=== PATIENT | male | born 1950 | race Caucasian/White ===

== ENCOUNTER 2023-08-17 11:22 | Outpatient (CLI) | payer MEDICARE, SELFPAY ==
--- NOTE | 2023-08-17 10:45 | DI.RAD_ITS ---
Exam(s) XR KNEE LT 3V AP,LAT,EFRAÍN EXAM: XR KNEE LT 3V AP,LAT,EFRAÍN CLINICAL HISTORY: pain/stiffness s/p TKA. TECHNIQUE: 2D digital imaging was performed. Three images were obtained. AP, PA tunnel and lateral views were obtained. COMPARISON: There are no priors for comparison. FINDINGS: BONES: There are stable post operative changes of a left total knee replacement present. No fracture or dislocation. There are enthesophytes at the anterior patella. There is an enthesophyte at the an terior tibial tuberosity. JOINTS: The orthopedic hardware is in good position. There is a lucency seen at the anterior bone pr osthetic interface in the distal femur the lateral view. SOFT TISSUE: Vascular calcifications are present. IMPRESSION: 1. The patient has a left total knee replacement. 2. There is a lucency seen at the anterior bone prosthetic interface in the distal femur on the later al view. Comparison should be made with prior examinations to assess for evidence of loosening. DATA REPOSITORY: RADIATION DOSE DELIVERED:
== END 2023-08-17 11:23 | disposition home or self-care (01) ==
LOC: DIORS 11:23
PROVIDERS: PCP Internal Medicine; Referring Provider Internal Medicine; Visit Provider Student in an Organized Health Care Education/Training Program
DX: M25.662 Stiffness of left knee, not elsewhere classified; Z96.652 Presence of left artificial knee joint
CPT/HCPCS: 73562; 99203

== ENCOUNTER → 2023-09-09 00:55 | Outpatient (CLI) | payer MEDICARE, SELFPAY ==
--- NOTE | 2023-09-09 06:00 | DI.NM_ITS ---
Exam(s) NM BONE SCAN 3 PHASE EXAM: NM BONE SCAN 3 PHASE CLINICAL HISTORY: PAIN, ?LOOSENING lt knee prosthesis, z96.652,T84.84xa. TECHNIQUE: Injected Dose: A9.5 mCi Tc-99m MDP COMPARISON: CR XR KNEE 4 VIEW RIGHT from 06/21/2020 CR XR KNEE LT 3V AP,LAT,EFRAÍN from 08/17/2023 FINDINGS: Perfusion: Hyperemia around the left knee. Blood Pool: Mildly increased activity around the left knee. Delayed: Increased activity seen adjacent to both the femoral and tibial components of the left knee prosthesis, suspicious for loosening. Significant activity noted in the medial femoral tibial joint space of the right knee. The findings are consistent with severe degenerative changes as seen on plain films. Increased activity also noted at the right sternoclavicular joint. Mildly increased activity in the mid thoracic spine likely secondary to degenerative changes. IMPRESSION: Abnormal increased activity around the left knee prosthesis, consistent with loosening. DATA REPOSITORY:
--- NOTE | 2023-09-09 08:29 | DI.CT_ITS ---
Exam(s) CT LOWER EXTREMITY LT WO EXAM: CT LOWER EXTREMITY LT WO CLINICAL HISTORY: PAIN, ?LOOSENING lt total knee,z96.652,T84.84xa. TECHNIQUE: Imaging Protocol: Axial computed tomography images with coronal and sagittal reformatted images were created and reviewed. CONTRAST MATERIAL: Noncontrast - COMPARISON: CR XR KNEE 4 VIEW RIGHT from 01/13/2018 CR XR KNEE 4 VIEW RIGHT from 06/21/2020 CR XR KNEE LT 3V AP,LAT,EFRAÍN from 08/17/2023 FINDINGS: Bones: Total knee prosthesis in place. Lucency seen between the anterior aspect of the femoral compo nent and femur which could indicate loosening. Slight lucency at tibial component greater medially. There is no evidence of fracture. Alignment satisfactory. Enthesophytes at patella and tibial tube rcle. No cellulitic or osteomyelitic changes are identified. No lytic or sclerotic lesions are identified. Joints: Small joint effusion. Soft Tissues: Normal. IMPRESSION: Lucency seen at the anterior aspect of the femoral component is well as adjacent to the tibial compon ent, suspicious for loosening. RADIATION DOSE DELIVERED: 350.48mGy.cm Total DLP DATA REPOSITORY: All CT scans at this facility are submitted to the National Radiology Data Registry (NRDR) Dose Index Registry (DIR) with the [employer] ([employer]). RADIATION OPTIMIZATION: All CT scans at this facility use at least one of these dose optimization te chniques: automated exposure control; mA and/or kV adjustment per patient size (includes targeted exa ms where dose is matched to clinical indication); or iterative reconstruction.
[2023-09-09 08:45] LABS: ESR 7 mm/hr (0-20)
[2023-09-09 09:23] LABS: C-Reactive Protein < 0.50 mg/dL (<or=0.5)
== END ==
PROVIDERS: PCP Internal Medicine; Visit Provider Student in an Organized Health Care Education/Training Program
DX: Z96.652 Presence of left artificial knee joint (principal); T84.84XA Pain due to internal orthopedic prosthetic devices, implants and grafts, initial encounter
CPT/HCPCS: 85652; 73700; 78315; 86140

== ENCOUNTER → 2023-09-14 14:45 | Outpatient (BNVA) | payer MEDICARE, SELFPAY | PROVIDERS: PCP Internal Medicine; Referring Provider Internal Medicine; Visit Provider Student in an Organized Health Care Education/Training Program | DX: T84.038A Mechanical loosening of other internal prosthetic joint, initial encounter (principal); Z96.652 Presence of left artificial knee joint | CPT/HCPCS: 99213 ==

== ENCOUNTER 2023-09-22 04:41 | Outpatient (CLI) | payer MEDICARE, SELFPAY ==
[2023-09-22 11:37] LABS: HCT 45.5 % (40.0-50.0); HGB 14.7 g/dL (13.5-17.5); MCH 26.5 pg (27.0-33.0); MCHC 32.3 % (32.0-36.0); MCV 82 fL (80-95); MPV 10.4 fL (8.0-11.0); Platelet Count 212 10^3/uL (130-400); RBC 5.55 10^6/uL (4.36-5.78); RDW 15.8 % (11.8-14.1); WBC 6.54 10^3/uL (4.4-10.8)
[2023-09-22 11:50] LABS: Anion Gap 6.7 mmol/L (3-11); BUN 33 mg/dL (7-18); CO2 29.3 mmol/L (21.0-32.0); CREATININE 1.3 mg/dL (0.70-1.30); Calcium 9.3 mg/dL (8.5-10.1); Chloride 106 mmol/L (98-107); Estimated GFR 58.73 (mL/min/1.73m2); Glucose 98 mg/dL (74-106); Potassium 4.3 mmol/L (3.5-5.1); Sodium 142 mmol/L (136-145)
== END 2023-09-22 04:42 | disposition home or self-care (01) ==
LOC: LBO 04:41
PROVIDERS: PCP Internal Medicine; Visit Provider Student in an Organized Health Care Education/Training Program
DX: T84.038A Mechanical loosening of other internal prosthetic joint, initial encounter (principal); Z96.659 Presence of unspecified artificial knee joint; Z01.818 Encounter for other preprocedural examination
CPT/HCPCS: 36415; 80048; 85027

== ENCOUNTER 2023-09-29 08:02 | Inpatient (IN) | payer MEDICARE, SELFPAY ==
[2023-09-29] VITALS (14 sets, daily range): BP systolic 119–168; BP diastolic 43–76; PULSE 48–65; RESP 15–24; TEMP 36.1–36.7; O2SAT 94–98; BMI 42.3
[2023-09-29] MEDS: Celecoxib 200 MG CAP 400 MG PO (08:46)
[2023-09-29] MEDS: Lactated Ringers 1,000 ML 80 ML IV ×2 (08:46→18:15)
[2023-09-29] MEDS: Gabapentin 300 MG CAP PO ×2 (08:47→20:16)
[2023-09-29] MEDS: Acetaminophen 500 MG TAB 1000 MG PO ×2 (08:47→20:15)
--- NOTE | 2023-09-29 09:49 | ANES.PREOP_ITS ---
General Info Date of Service Date Performed: 09/29/23 Height: 5 ft 9 in Weight: 130.1 kg Body Mass Index (BMI): 42.3 Surgical Procedure: Operation Date: 09/29/23 12:40 Proposed Procedure Side Surgeon p Knee Total Revision, ATTUNE Left Marcel Paulino MD Meds Allergies and Home Medications Allergies Allergy/AdvReac Type Severity Reaction Status Date / Time Sulfa (Sulfonamide Allergy Intermediate Skin Rash Verified 09/29/23 08:39 Antibiotics) bactrim Allergy Unknown Other (See Uncoded 09/29/23 08:39 Comment) Home Medication ?Medication ?Instructions ?Recorded allopurinol 300 mg tablet 300 mg PO DAILY 06/16/23 furosemide 20 mg tablet (Lasix) 20 mg PO DAILY 06/16/23 lisinopril 20 mg tablet 20 mg PO DAILY 06/16/23 metoprolol succinate 25 mg 25 mg PO DAILY 06/16/23 tablet,extended release 24 hr aspirin 81 mg capsule 81 mg PO DAILY 09/28/23 Current Visit Medications: Current Medications Generic Name Dose Route Start Last Admin Trade Name Fredo PRN Reason Stop Dose Admin Acetaminophen 1,000 mg 09/29/23 06:00 09/29/23 08:47 Acetaminophen 500 Mg Tab PO 10/28/23 23:59 1,000 mg PREOP JOHN Administration Celecoxib 400 mg 09/29/23 06:00 09/29/23 08:46 Celecoxib 200 Mg Cap PO 10/28/23 23:59 400 mg PREOP JOHN Administration Gabapentin 300 mg 09/29/23 06:00 09/29/23 08:47 Gabapentin 300 Mg Cap PO 10/28/23 23:59 300 mg PREOP JOHN Administration Ringer's Solution 1,000 mls @ 80 mls/hr 09/29/23 06:00 09/29/23 08:46 IV 10/28/23 23:59 80 mls/hr INFUSION JOHN Administration Cefazolin Sodium 3,000 mg/ 100 mls @ 200 mls/hr 09/29/23 06:00 Sodium Chloride IVPB 10/28/23 23:59 PREOP JOHN Tranexamic Acid/Sodium Chloride 1,000 mg in 100 mls @ 600 mls/hr 09/29/23 0 6:00 IVPB 10/28/23 23:59 PREOP JOHN IV Miscellaneous Supplies 1 each 09/29/23 06:00 Iv Access IV 10/28/23 23:59 DIRECTED JOHN Sodium Chloride 0 ml 09/29/23 06:00 Normal Saline Flush 10 Ml Syr IV 10/28/23 23:59 PRN PRN Sodium Chloride 0 ml 09/29/23 06:00 Normal Saline 10 Ml Vial IJ 10/28/23 23:59 DIRECTED PRN Sterile Water 0 ml 09/29/23 06:00 Water,Injection,Sterile 10 Ml Vial IJ 10/28/23 23:59 DIRECTED PRN PFSH Active Problems Active Problems: Problem Status Onset Code 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, Z96.659 History of total left knee replacement Acute 07/24/20 Z96.652 Sleep apnea Acute G47.30 Hypertension Chronic I10 Gout Chronic M10.9 Surgical History Surgical History History of arthroscopy of right knee History of arthroscopy of left knee Tobacco Smoking/Tobacco Use Status: Never Alcohol Alcohol Intake: current Alcohol intake frequency: a few times a week Substance Use Substance use: Never Substance use type: does not use Vital Signs and Lab Results Vital Signs Most Recent Vital Signs in EMR: Most Recent Vital Signs Temp Pulse Resp BP Pulse Ox 36.7 C 50 L 16 149/57 H 96 09/29/23 08:41 09/29/23 08:41 09/29/23 08:41 09/29/23 08:41 09/29/23 08:41 Lab Results Blood Type / Crossmatch: No Data to Display Complete Blood Count: White Blood Count 6.54 10^3/uL (4.4-10.8) 09/22/23 11:12 Red Blood Count 5.55 10^6/uL (4.36-5.78) 09/22/23 11:12 Hemoglobin 14.7 g/dL (13.5-17.5) 09/22/23 11:12 Hematocrit 45.5 % (40.0-50.0) 09/22/23 11:12 Platelet Count 212 10^3/uL (130-400) 09/22/23 11:12 Complete Metabolic Panel: Sodium 142 mmol/L (136-145) 09/22/23 11:12 Potassium 4.3 mmol/L (3.5-5.1) 09/22/23 11:12 Chloride 106 mmol/L (98-107) 09/22/23 11:12 Carbon Dioxide 29.3 mmol/L (21.0-32.0) 09/22/23 11:12 BUN 33 mg/dL (7-18) H 09/22/23 11:12 Creatinine 1.3 mg/dL (0.70-1.30) 09/22/23 11:12 Est GFR (CKD-EPI 2020) 58.73 (mL/min/1.73m2) 09/22/23 11:12 Calcium 9.3 mg/dL (8.5-10.1) 09/22/23 11:12 Glucose 98 mg/dL (74-106) 09/22/23 11:12 C-Reactive Protein < 0.50 mg/dL (<or=0.5) 09/09/23 07:45 Liver Function Panel: No Data to Display Coagulation Panel: 2 No Data to Display Cardiac Panel: No Data to Display Arterial Blood Gas: No Data to Display Venous Blood Gas: No Data to Display Pancreas Panel: No Data to Display Thyroid Panel: No Data to Display Infectious Disease: No Data to Display Blood Cultures: No Data to Display Toxicology Panel: No Data to Display Imaging and Studies Imaging and Studies Study information below may be from another EMR and interpreted by another provider. Please see original notes in EMR for more complete details. Echocardiogram Summary: 01/21/23: ([facility]): 50-55%, no significant valvular disease Anesthesia Assessment and Plan Anesthesia History Personal History: No History of Anesthesia Complications Family History: No Family History of Anesthesia Complications Exercise Tolerance Exercise Tolerance: Metabolic Equivalents>4 Pertinent Negatives Pertinent Negatives: No Symptoms of GERD, No Major Cardiovascular Symptoms or Complaints and No Major Pulmonary Symptoms or Complaints Cardiac & Pulmonary Exam Cardiac Exam: Normal S1/S2 Heart Sounds Pulmonary Exam: Clear Bilateral Breath Sounds Implantable Cardiac Device Does patient have a Pacemaker or an ICD?: No Airway Exam Known Difficult Airway: No Mallampati Class: 2 Mouth Opening: Normal (> 3cm) Thyromental Distance: Greater than 3 cm Neck Range of Motion: Full ROM Neck Circumference: Thick Teeth Condition: Normal Dentition ASA Classification ASA Score: ASA 3 Emergency Case?: No NPO Status NPO Status: NPO Clears >2 hours, Solids >8 hours Anesthesia Plan Resuscitation Status: Full Code Anesthesia Technique: Spinal Anesthesia Airway Planned: Natural Airway Pain Management: Surgeon and patient request nerve block Monitors Used: Standard Monitors Preoperative Comments:: History of CHF with prior reduced EF, started on medical management, repeat echo improved.
--- NOTE | 2023-09-29 10:50 | W.ANESNERVE ---
Nerve Block Single Injection Procedure Date and Time Date Performed: 09/29/23 Procedure Start: 10:42 Location Where Procedure Performed Procedure Location: Day Surgery Unit Reason Performed: Postoperative Analgesia Requesting Provider: Marcel Paulino Timeout Performed Timeout Performed: Yes Monitoring Used ECG, Blood Pressure and SpO2 Sterility Sterility: Hand Hygiene, Surgical Cap, Surgical Mask, Sterile Gloves and Chlorhexidine Sedation Given During Procedure Sedation Given (Indicate Dose Given): No Sedation given Patient Mental Status Patient Mental Status: Awake Nerve Block 1st Nerve Block: Laterality: Left Block Type: Adductor Canal Ultrasound Image Saved?: Yes Needle / Catheter Used: 100mm SonoPlex II Local Anesthetic Bolus (Indicate Dose Given): Lidocaine used for local infiltration of skin, Injected in 3-5ml increments after negative blood aspiration and Bupivacaine 0.25% Dose:: 14 ml Additives (Indicate Dose Given): None Ultrasound: Sterile probe cover and gel used Nerve Stimulator: Supplement to Ultrasound use Paresthesia: None Procedure Tolerated: No Complications and Patient tolerated well Procedure Outcome: Successful Performed By: Young Khanna
[2023-09-29] MEDS: ceFAZolin 3,000 MG in Normal Saline 100 ML 200 MG IVPB (11:38)
[2023-09-29] MEDS: Bupivacaine 0.25% Pres-Free 30 ML VIAL (11:45)
[2023-09-29] MEDS: methylPREDNISolone ACETATE 80 MG/ML VIAL (11:45)
[2023-09-29] MEDS: TRANEXAMIC ACID/SOD. CHL. 1,000 MG/100 ML BAG 600 MG IVPB (11:54)
[2023-09-29] MEDS: TRANEXAMIC ACID/SOD. CHL. 1,000 MG/100 ML BAG 600 MG (15:09)
--- NOTE | 2023-09-29 15:16 | W.PM.OP ---
Date of service: 09/29/23 Time of Service: 11:30 Operative Note Operative Note DATE OF PROCEDURE: 09/29/23 PRE-OP DIAGNOSIS: Left Prosthetic Knee Loosening Right Knee Osteoarthritis POST-OP DIAGNOSIS: same (Iatrogenic Distal Femur Fracture) PROCEDURE: Revision Left Knee Replacement with Cable Fixation of Fracture Right Knee Injection SURGEON: Marcel Paulino PRESCRIPTION BENEFIT SPECIALIST: Hailey He ANESTHESIA TYPE: Spinal Refer to Anesthesia Record ESTIMATED BLOOD LOSS: 500 TOURNIQUET TIME: 42 COMPLICATIONS: Other (Distal Femur Fracture - Stable contained crack from anterior femur - stabilized with 2 cerclage cables) Patient was transported to: PACU Patient's condition: stable Implants: Tibia: - Depuy Attune Revision Cemented Tibial Tray, Size 7 - Depuy Attune Partially Porous Coated Sleeve, 27mm - Depuy Attune Cementless Stem, [id number] Femur: - Depuy Attune CRS Cemented Femur, Size 7 - 4mm Distal Augments, Medial and Lateral - 4mm Posterior Augment Medial and 8mm Posterior Augment Lateral - Depuy Attune Porous Coated Sleeve, 35mm - Depuy Attune Cementless Stem, 16x60 Depuy Attune CRS/RP 7x8mm Poly Indications: Blake is a 73-year-old male have seen for significant restriction of motion, arthrofibrosis, and notable pain about the left knee. Imaging studies confirmed the diagnosis of a loose component. Therefore, recommend revision knee arthroplasty. I reviewed the surgery with him in details in the office as well as today. I discussed the risks include bleeding, infection, pain, stiffness, fracture, damage to nerves and vessels, damage muscle tendons, weakness, blood clot, cardiopulmonary demise, need for repeat procedures. Despite these risk, he elected to proceed. Findings: There was dense adhesions throughout the knee making range of motion impossible even with the extensor mechanism open. Extension into the quadriceps was performed for the extensor mechanism to move an aggressive synovectomy was performed with notable synovitis and adhesions seen even under the implant. The femoral implant was completely loose with a large soft tissue interposition layer. The medial tibia was loose with some only slight attachments laterally. The implants were removed and revision knee arthroplasty was placed. Unfortunate, during the placement of the femoral component a crack was seen in the anterior femur. This was secured with 2 cerclage cables. Procedure Description: Blake was greeted in the preoperative holding area where the correct side was identified and marked. The consent was reviewed with the patient and signed. The history and physical was updated. All questions were answered. Preoperative mediacations were administered: Acetaminophen 1000mg, Celebrex 400mg, and Gabapentin 300mg. An adductor canal block was then administered by the anesthesia team in the PACU. Blake was taken back to the operating room. A spinal anesthestic was administered. The patient was placed into the supine position on the operating room table. Posts were placed for positioning during the procedure. All bony prominences were well padded. Prophylactic antibiotics in the form of Cefazolin were administered. The left leg was then prepped with Chloraprep and draped in a standard fashion with impervious stockinette. A second prep with Chloraprep was performed prior to application of Iodine impregnated skin protection. A timeout to confirm correct identity, side and site, procedure, allergies, anesthesia, and medical concerns was performed. Full thickness skin flaps were raised once the extensor mechanism was encountered. These were raised medially and laterally. Any bleeding was controlled with electrocautery. There were dense adhesions between the subcutaneous tissue and the extensor mechanism. This was elevated. The quadriceps tendon and the capsular tissue was healthy in appearance. The previously placed FiberWire was encountered and marked. With good exposure in the arthrotomy was performed with a medial parapatellar approach. This was taken down through the multiple layers of capsule and scar tissue down to bone and implant. This tissue was incredibly thick. There is no joint space. In essence there was scar tissue and synovitis seen all the way down to the metal in the bone. The patella was unable to be moved even with the arthrotomy. I therefore systematically started removing synovitis and adhesions. This was done with 2 Allis 2 Nicki clamps superiorly, laterally, medially. However, this still provided very little benefit. I then extended our arthrotomy through the quadriceps tendon and into the vastus lateralis, modified quadriceps snip. This helped out with some of the mobility of the quadriceps. However, I still can only flex knee to about 90 degrees at best. I continue to work on synovitis and adhesions so I could fully see the femur as well as the tibia. Dense adhesions were adjacent to the tibial component. There is also notable adhesions and synovitis seen under the femoral component. With these transected I then used a palmer elevator up the anterior femur to separate adhesions to the overlying quadriceps mechanism. This now gave at least adequate exposure to evaluate the implants. The femoral component was completely loose. With manual pressure was able to remove the femur. There is no adhesion between the cement and the bone. Underlying the implant was a dense fibrous layer interposed between the metal and the bone with bone irregularities particular over the anterior?distal femur. The distal end of the femur, while without any defects of bone had irregular surfaces. The surface was inspected there was no remnant cement. Cement from the previous lug holes was removed. Attention was turned to the tibia. With minimal effort I was able to slide a chisel underneath the medial tibial plateau. This was slightly more difficult laterally. However, this was worked around the periphery of the implant. The implant was slightly externally rotated. However, what made things challenging was the remnant bone of the tibia as well as the dense tissue adjacent to the patellar ligament. There was no significant stretch or give this tissue. I continue to expose the lateral tibial plateau and release adhesions as best as possible all the way down to the tibial tubercle. I then utilized a osteotome to slight underneath the tibial implant and with mallet blows was able to remove the tibial component with some difficulty. There is no notable bone loss. There was some cement left on the tibia and the lateral tibial plateau. There is also cement down into the canal. Utilizing chisel and osteotomes as it would remove the cement. Both surfaces were thoroughly irrigated with the pulse lavage. Any remnant soft tissue on top of the bone was removed. Any remnant cement was addressed. Attention was now turned to the placement of the revision components. Starting with the tibia manual reaming was performed. This was taken up to size 16 mm reamer which had some encounter of the cortical bone but was still able to manually turn. Following this, the broaching was performed up to size 37 mm broach utilizing the concise pneumatic impactor. This was set just below the surface of the tibia. With the broach in position I then smoothed off the top of the tibia with a freshening cut planar with the top of the broach. The broach is then removed and trial implants were placed. The tibia was rotated to the medial one third of the tibial tubercle and locked into position. The femur was similarly reamed. There is some notable thinning and defect of the anterior tibia and irregularity of the distal femoral surface. Reaming was taken up to size 16 mm reamer we had adequate encounter with the cortical bone. His bone in the femur was actually quite dense. A distal cut was then made back down to fresh distal femur bone although irregular. Therefore, prior to broaching I reamed this area with the opening reamer. I then broached up to a size 35 mm reamer we had adequate control rotationally and axially, planning for 4 mm augments both medially and distally. A size 7 femoral cutting block was then positioned in left loose. Extension gap was checked which measured about 8 mm. I then brought the knee up in the 90 degrees of flexion with the 8 mm block which showed adequate control and flexion. Rotation was now set and this was pinned into position. The posterior cuts were deficient and needed a 4 mm augment medially and 8 mm augment laterally. These cuts were made to make sure there was fresh, plantar surfaces for the implant. Anterior posterior chamfers were made. Anterior distal femur was also cut despite there being some central defect. A trial femur was then positioned. The trial showed adequate extension and flexion to about 115 degrees. There is stability both varus and valgus stress in extension and flexion although some opening with varus stress but stability was still in place. The trial implants were then removed. Rotation was locked into position for later reference. The tibia and femoral canals were both reamed with a 17 mm reamer and the distal aspect of the femur was reamed with an 18 mm reamer. On the back table the components were opened and assembled. While they were being assembled the knee was thoroughly irrigated with normal saline with a pulse lavage. The tourniquet was inflated to 275 mmHg stay for 42 minutes. There is no significant bleeding at this time although there was a persistent ooze during the case. The bones dried. 2 batches of medium viscosity cement were prepared on the back table as well once the components were assembled per customer service analyst guidelines with appropriate augments. The posterior capsular tissues were then injected with a mixture of ropivacaine, epinephrine, clonidine, ketorolac, diluted to 100 cc. A portion was used in the posterior soft tissues around the knee. The remainder be used in the periosteum, muscle, tendon, and subcutaneous tissue later in the case. With the cement now prepared some was placed onto the tibial backside. There is also some placed onto the posterior flange and around the notch and box of the femoral component. Cement was manually impregnated into the cut surface of the tibia. The tibial component was then inserted ensuring to line up the sleeve. This was then impacted in position which sat down quite nicely. Excess cement was removed. Cement was then impregnated into the distal end of the femur. There was a defect anteriorly and therefore there was made sure not to put any in the anterior surfaces against the porous femoral component. The femoral component was then inserted. However, it did seem to have some difficulty with insertion. It was malleted in place and seem to be lined up appropriately on both posterior and distal surfaces. However, it was noted that there was a crack seen anteriorly. This started within the defect the bone of the distal?anterior surface of the tibia and extended obliquely to the medial aspect of the femur. There is no secondary fracture line apparent. With the components in place and manipulation of the leg is unable to show any signs of opening of the fracture. The trial polyethylene was then inserted and the knee was brought into extension. The knee was irrigated with Surgiphor Betadine solution where it sat in the knee for almost 5 minutes before being irrigated out with saline. The remainder of the periarticular cocktail was also injected throughout the knee. After irrigating out the irrigation solution and then inspected the fracture while the cement was curing. I was able to place my [place] elevator and the fracture line was unable to distract the fracture at all. I fully inspected and elevated off periosteum to see the fracture in which seem to terminate at the distal aspect of the sleeve prior to the stem. Therefore, I placed 2 cables. Synthes cerclage cables were utilized. 1 was placed just above the flange of the femur where the fracture seem to start at over the deficient anterior?distal femur. This was placed intention to fit pounds and locked into position. I then placed a second cerclage cable at the apex of the fracture hopefully to prevent any propagation. This was also tension of 50 pounds. They both were inspected and seem to be in good positions. While being placed they were position with the cerclage passer against bone for the entire pass with no soft tissue interposition. These were then finally tensioned and crimped. Excess wire was cut. The polyethylene was then removed and the CRS 7 x 8 mm poly was placed. The knee was kept at 90 degrees of flexion where it was closed. I utilized #2 FiberWire in interrupted fashion for the arthrotomy followed by #1 Vicryl. This was all reinforced with a #1 strata fix suture. Deep tissues were then closed with a 0 Vicryl followed by 2-0 Vicryl. The skin was closed with a running 3-0 Monocryl in a subcuticular fashion. This was reinforced with skin glue. A Mepilex silver dressing was applied along with a [id number] JEFFREY wrap. A CryoCuff was applied. Blake was transferred to the hospital stretcher without difficulty an suffering no apparent complication. Blake has a gaurded prognosis. Aspirin 81mg BID will be used for DVT prophylaxis. I will obtain x-rays in the PACU. This likely is a stable release type fracture. The cable should prevent any propagation. He will be weightbearing as tolerated with assistive devices at all times.
--- NOTE | 2023-09-29 16:37 | W.ANESPOSTOP ---
Postoperative Evaluation Date, Time and Location Date Performed: 09/29/23 Time Performed: 16:40 Patient Location: PACU Vital Signs Most Recent Imported Vital Signs: Most Recent Vital Signs Temp Pulse Resp BP Pulse Ox 36.5 C 56 L 15 119/43 L 97 09/29/23 16:20 09/29/23 16:20 09/29/23 16:20 09/29/23 16:20 09/29/23 16:20 Pain Score Most Recent Pain Score: Most Recent Pain Score Pain Level 0 09/29/23 16:20 Assessment Mental Status: Awake (Alert & Oriented to Patient Baseline) Airway and Respiratory Function: Patent airway with normal (patient baseline) respiratory exam Cardiovascular Function: Hemodynamically Stable Hydration Status: Adequately Hydrated Nausea & Vomiting: Active Nausea or Vomiting Present Nausea and Vomiting Management: Nausea and vomiting active, being addressed with medication Pain: Pt. Denies Any Pain Peripheral Nerve Block: Regional nerve block not resolved at time of post operative discharge Postoperative Comments:: Spinal still intact, spinal orders placed. Patient to be inpatient
--- NOTE | 2023-09-29 16:47 | DI.RAD_ITS ---
Exam(s) XR KNEE LT 2V AP,LAT XR FEMUR LT EXAM: XR FEMUR LT CLINICAL HISTORY: Femur fracture. TECHNIQUE: 2D digital imaging was performed. AP and lateral views, portable. COMPARISON: Plain films of the knee September 06. CT and 3 phase bone scan 09 September 2023. FINDINGS: S/p revision left knee prosthesis. Alignment of new prosthesis appears satisfactory. Residual posts urgical air in the soft tissues. The hip joint spaces maintained. IMPRESSION: Satisfactory postsurgical appearance. DATA REPOSITORY: RADIATION DOSE DELIVERED:
[2023-09-29] MEDS: Ondansetron 4 MG/2 ML VIAL IVP (16:50)
--- NOTE | 2023-09-29 17:28 | PT.INNT ---
PT Notes Patient just arrived to med surg unit and is being attended to/admitted by nurse when PT came in. Will see patient for PT evaluation tomorrow morning, as ordered.
--- NOTE | 2023-09-29 17:52 | W.PC.ACHO ---
Registration Status: Primary Language: Preferred Language: (Last Reviewed 09/29/23 @ 08:42 by Polly Abraham RN) History of arthroscopy of right knee History of arthroscopy of left knee Most Recent Vital Signs Temperature 36.1 C L 09/29/23 17:21 Temperature Source Tympanic 09/29/23 10:23 Pulse 60 09/29/23 17:21 Pulse Rhythm Regular 09/29/23 08:41 Respiratory Rate 18 09/29/23 17:21 Respiratory Effort Normal, Non-Labored 09/29/23 17:21 Respiratory Depth Normal 09/29/23 17:21 Respiratory Pattern Normal 09/29/23 17:21 Blood Pressure 128/68 09/29/23 17:21 Blood Pressure Mean 106 09/29/23 10:23 Pulse Oximetry 94 09/29/23 17:21 Oxygen Delivery Method Room Air 09/29/23 17:21 Oxygen Flow Rate 0 09/29/23 17:21 Pain Level 0 09/29/23 17:21 Comment 1036- Time Out with Young CRAVEN and Polly RN 1043- Local given by Young CRAVEN 1045- 1st dose of Block given 1046- Procedure done Pt denies pain at this time, denies metallic taste, states he feels completely normal. No concerns noted at this time. 09/29/23 10:23 Allergies Sulfa (Sulfonamide Antibiotics) Allergy (Intermediate, Verified 09/29/23 08:39) Skin Rash bactrim Allergy (Unknown, Uncoded 09/29/23 08:39) Other (See Comment) Active Medications Generic Name Dose Route Start Last Admin Trade Name Freq PRN Reason Stop Dose Admin Acetaminophen 1,000 mg 09/29/23 06:00 09/29/23 08:47 Acetaminophen 500 Mg Tab PO 10/28/23 23:59 1,000 mg PREOP JOHN Administration Celecoxib 400 mg 09/29/23 06:00 09/29/23 08:46 Celecoxib 200 Mg Cap PO 10/28/23 23:59 400 mg PREOP JOHN Administration Gabapentin 300 mg 09/29/23 06:00 09/29/23 08:47 Gabapentin 300 Mg Cap PO 10/28/23 23:59 300 mg PREOP JOHN Administration Ringer's Solution 1,000 mls @ 80 mls/hr 09/29/23 06:00 09/29/23 16:56 IV 10/28/23 23:59 80 mls/hr INFUSION JOHN Infusion Cefazolin Sodium 3,000 mg/ 100 mls @ 200 mls/hr 09/29/23 06:00 09/29/23 11:48 Sodium Chloride IVPB 10/28/23 23:59 Infused PREOP JOHN Infusion Tranexamic Acid/Sodium Chloride 1,000 mg in 100 mls @ 600 mls/hr 09/29/23 06:00 09/29/23 12:04 IVPB 10/28/23 23:59 Infused PREOP JOHN Infusion IV IV Catheter Type [Right Hand] Peripheral IV IV Catheter Gauge [Right Hand] 20 Diet Orders Category Date Time Status Regular/Normal [DIET] Nutrition 09/29/23 Dinner Active Intake and Output - 24 Hour Total 08/18/23 09:18 thru 09/29/23 17:21 Intake Total 1100 Balance 1100 Weight 129.727 kg Intake: IV 1100 Other: Emesis Description Clear/Water Falls Risk Assessment History of Falls Previous History 09/29/23 17:21 Contributing Factors Impairments 09/29/23 17:21 Ambulatory Aids Independent 09/29/23 17:21 Tubes/Lines W/no contributing factors 09/29/23 17:21 Gait Evaluation W/any additional score 09/29/23 17:21 Cognition No cognitive impairment 09/29/23 17:21 Fall Total Score 48 09/29/23 17:21 Level of Risk Moderate Risk 09/29/23 17:21 v v v v v v v v v Sending and/or Receiving Nurses: Please use comment section below to note any information pertinent to the patient hand-off not included above. Information / Comments: Report handed and reported by PACU nurse Terrie. Patient is post op left knee revision and right knee injection., bandaid in placed on rt. knee and garcia wrap on left leg and cryo cuff applied. No sensations on both legs and unable to move extremities yet due to nerve block during surgery. Patient is alert and oriented x 4. Oriented to call lights system. Report received from:
[2023-09-29] MEDS: Aspirin E.C. 81 MG TABEC PO (20:16)
[2023-09-29] MEDS: Celecoxib 200 MG CAP PO (20:16)
[2023-09-29] MEDS: ceFAZolin 1 GM/50 ML BAG IVPB (22:09)
--- NOTE | 2023-09-30 | DI.RAD_ITS ---
Exam(s) XR KNEE LT 2V AP,LAT EXAM: XR KNEE LT 2V AP,LAT CLINICAL HISTORY: post-mobilization xray. TECHNIQUE: 2D digital imaging was performed. COMPARISON: CR XR KNEE LT 3V AP,LAT,EFRAÍN from 08/17/2023 NM NM BONE SCAN 3 PHASE from 09/09/2023 CR XR KNEE LT 2V AP,LAT from 09/29/2023 FINDINGS: Two views. Again noted is the revision prosthesis of the left knee. Some gas is seen within soft tissues of the visualized lower thigh which are probably postsurgical. There is a nondisplaced lung truly orientated fracture in the tibia, best seen on the lateral view wi thin the medullary cavity extending caudally from the caudal tip of the tibial component of the lesvia ion prosthesis. There are no fractures around the advised femoral component of the prosthesis. No f ractures of the fibula. IMPRESSION: Revised prosthesis with nondisplaced thin longitudinal fracture in the tibia extending caudally beyon d the field of view of these images. If clinically indicated further images of the entire tibia-fibu la can be performed. DATA REPOSITORY: RADIATION DOSE DELIVERED:
[2023-09-30 00:23] VITALS: BP 134/72; PULSE 54; RESP 20; TEMP 36.3; O2SAT 98
[2023-09-30 04:23] VITALS: BP 128/67; PULSE 60; RESP 18; TEMP 36.6; O2SAT 96
[2023-09-30] MEDS: ceFAZolin 1 GM/50 ML BAG IVPB ×2 (06:08→13:14)
[2023-09-30 07:15] LABS: HCT 35.9 % (40.0-50.0); HGB 11.9 g/dL (13.5-17.5); MCHC 33.1 % (32.0-36.0); MCV 81 fL (80-95); MPV 10.3 fL (8.0-11.0); Platelet Count 166 10^3/uL (130-400); RBC 4.41 10^6/uL (4.36-5.78); RDW 15.8 % (11.8-14.1); RDW-SD 46.6 fL; WBC 11.12 10^3/uL (4.4-10.8)
[2023-09-30 07:24] LABS: Anion Gap 6.1 mmol/L (3-11); BUN 40 mg/dL (7-18); CO2 25.9 mmol/L (21.0-32.0); CREATININE 1.4 mg/dL (0.70-1.30); Calcium 8.2 mg/dL (8.5-10.1); Chloride 108 mmol/L (98-107); Estimated GFR 53.74 (mL/min/1.73m2); Glucose 145 mg/dL (74-106); Potassium 4.5 mmol/L (3.5-5.1); Sodium 140 mmol/L (136-145)
[2023-09-30 07:36] VITALS: BP 119/48; PULSE 56; RESP 14; TEMP 36.7; O2SAT 96
[2023-09-30] MEDS: Acetaminophen 500 MG TAB 1000 MG PO ×2 (07:36→14:41)
[2023-09-30] MEDS: Furosemide 20 MG TAB PO (07:37)
[2023-09-30] MEDS: Allopurinol 300 MG TAB PO (07:37)
[2023-09-30] MEDS: Aspirin E.C. 81 MG TABEC PO (07:40)
[2023-09-30] MEDS: Dexamethasone 4 MG TAB PO (07:40)
[2023-09-30] MEDS: Lisinopril 20 MG TAB PO (07:40)
[2023-09-30] MEDS: Pantoprazole 40 MG TABCR PO (07:40)
[2023-09-30] MEDS: Celecoxib 200 MG CAP 400 MG PO (07:46)
--- NOTE | 2023-09-30 09:50 | PT.INIE ---
PT Notes Visit Reasons: Prosthetic Knee Loosening-Left Physical Therapy Inpatient Initial Evaluation Date: 09/30/2023 Referring Doctor: Marcel Paulino MD PT Orders: PT CONSULT: S.P Ortho Surgery. S/P revision L TKA Precautions: Standard. Per Dr. Paulino, WBAT on the L LE with AD. Patient Profile/Admitting Diagnosis: Blake is a 73-year-old male with diagnoses of left TKA prosthesis loosening and is status post left TKA revision with cable fixation on postoperative day 1. PMHX: All Active Problems (Updated 08/18/23 @ 06:49 by Marcel Paulino MD) Aseptic loosening of prosthetic knee (Acute) History of total left knee replacement (Acute 07/24/20) Sleep apnea (Acute) Hypertension (Chronic) Gout (Chronic) Surgical History (Updated 09/14/23 @ 16:35 by Carey Ramos) History of arthroscopy of right knee History of arthroscopy of left knee Social History/Home Situation: Lives with in a priavte home. 4 steps to enter with B rails. Read a book Equipment Owned/DME: [facility] Subjective: Mild ache in medial of thigh that minimally limited today's performance. Denied headache, chest pain, and lightheadedness throughout session Objective: General Observation: Jacob wraps to left LE. Cryocuff to left knee. IV through right UE. Mental Status: ANO x 4 Pain: 1-2/10 ROM: Right Lower Extremity: Hip flexion WFL. Hip abduction WFL. Knee flexion WFL. Ankle dorsiflexion WFL. Ankle plantarflexion WFL. Left Lower Extremity: Hip flexion WFL. Hip abduction WFL. Knee flexion 0-85 degrees. Ankle dorsiflexion WFL. Ankle plantarflexion WFL. Strength: Right Lower Extremity: Hip flexors 5/5. Hip abductors 5/5. Knee flexors 5/5. Knee extensors 5/5. Ankle dorsiflexors 5/5. Ankle plantarflexors 5/5. Left Lower Extremity:Hip flexors 5/5. Hip abductors 5/5. Knee flexors 3-/5. Knee extensors 3/5. Ankle dorsiflexors 5/5. Ankle plantarflexors 5/5. Sensation: Intact as to pain and light pressure in bilateral lower extremities Bed Mobility/Transfers: Minimal cueing provided for use of B hands as needed for support, movement sequence, AD management, and posture to reduce fall risk and minimize pain report Supine to sit independent Sit to stand independent with FWW Stand to sit independent with FWW Bed to chair independent with FWW Gait: Facilitated safe and correct performance of level surface ambulation covering a distance of 300 feet using front-wheeled walker with step to gait pattern requiring only standby assist and minimal verbal cueing for heel toe gait pattern, AD management, safe and correct limb advancement/movement sequence and posture to maximize independence and reduce fall risk. Stairs: Guided patient with safe and correct negotiation of 6 x 4 inch steps and 4 x 6 inch steps while holding onto bilateral rails with step to gait pattern requiring only supervision and minimal verbal cueing for increased knee flexion on the left during each ascent, hand placement, and correct movement sequence to maximize independence and reduce fall risk. Balance: Static Sitting: Normal Dynamic Sitting: Normal Static Standing: Fair Dynamic Standing: Fair Special Tests: Mobility Limitations Standardized Measure [facility]-PAC 6 clicks Basic Mobility Inpatient Short Form: Raw Score: 24 CMS Score: 0% deficit Informed Consent/Education: Patient instructed in purpose of PT consult. Packet containing TKA exercise protocol has been given to patient. Education and training on initial set of exercises that can be done at home have been completed with patient. Trained patient with correct performance of exercises below to maximize motor control, joint flexibility, soft tissue extensibility of the L knee musculature: Access Code: [email or web address] URL: [email or web address] Date: 09/30/2023 Prepared by: Jackie Mancilla Exercises - Supine Quad Set - 1 x daily - 7 x weekly - 1 sets - 10 reps - 5 hold - Supine Heel Slide - 1 x daily - 7 x weekly - 1 sets - 10 reps - 5 hold - Supine Ankle Pumps - 1 x daily - 7 x weekly - 1 sets - 10 reps - 5 hold - Small Range Straight Leg Raise - 1 x daily - 7 x weekly - 1 sets - 10 reps - 5 hold - Seated March - 1 x daily - 7 x weekly - 1 sets - 10 reps - 5 hold Assessment: Patient requires use of a front wheeled walker to maximize independence and reduce fall risk during mobility ADL performance. Patient presents with clinical signs and symptoms consistent with current/admitting diagnoses that have resulted to mobility limitations, gait instability, generalized weakness, and impairment of motor control as demonstrated by the following impairment level findings: 1. Decreased strength to left knee major muscle groups 2. Impaired standing balance 3. Limitation of joint range of motion in left knee Impairments are contributing to the following functional limitations: 1. Inability to safely ambulate without assistive device 2. Increase completion time for mobility ADL performance 3. Increased fall risk Patient is assessed as a 70536 moderate complexity based on the following: History: 73-year-old male with impairment level findings, functional limitations, and past medical history as indicated above Examination: Demonstrable impairment in strength, balance, and mobility level with underlying impairments and functional limitations as documented above Presentation: Evolving Decision Makin moderate complexity Goals: N/A. PT evaluation and 1-2 treatment sessions only for functional mobility training using recommended AD and for HEP instruction. Plan of Care/Treatment Plan: N/A. PT evaluation and 1-2 treatment session only for functional mobility training using recommended AD and for HEP instruction. DISCHARGE RECOMMENDATIONS: Home when medically cleared by orthopedic surgeon. Recommend outpatient PT services in order to optimize functional mobility outcomes and facilitate return to independent community ambulation without an assistive device. TREATMENT CODE/TIME: 9716 2 x 28 minutes for 1 unit (9:50?10: 18). Thank you for the opportunity to participate in the care of this patient. Please sign an return this page within 30 days if you agree with the above POC. Thank you! Physician Signature Date [facility] Thank you for the opportunity to participate in the care of this patient. Jackie Mancilla PT, DPT, CLT [facility] [place], [place]
--- NOTE | 2023-09-30 10:31 | W.PM.DS.N ---
Date of service: 09/30/23 Time of Service: 10:31 DS: Diagnosis Discharge Diagnosis (1) History of total left knee replacement: Status: Acute (2) Aseptic loosening of prosthetic knee: Status: Acute (3) Periprosthetic fracture around internal prosthetic left knee joint: Status: Acute Discharge Plan Disposition Patient Disposition: Home Condition: Improving Discharge Details Reason For Visit: Prosthetic Knee Loosening-Left Admit Date/Time: 09/29/23 08:02 Admit Provider: Marcel Paulino Attending Provider: Marcel Paulino Primary Care Provider: Mendel Rausch Hospital Course Hospital Course: Patient was admitted to the medical/surgical floor following the procedure. The surgery was tolerated well without any notable medical, surgical, or anesthetic complications. Mobilization began postoperatively. [He][She] was voiding spontaneously. Vitals were stable. Physical therapy worked with the patient and was cleared for discharge home. No acute medical issues. Pain was controlled on oral regimen. Home Meds and New Rx's Prescriptions: New acetaminophen 500 mg tablet 1,000 mg PO Q8H PRN (Reason: pain) Qty: 90 3RF aspirin 81 mg tablet,delayed release (DR/EC) 81 mg PO BID Qty: 60 0RF celecoxib 200 mg capsule 200 mg PO BID PRN (Reason: pain) Qty: 60 1RF pantoprazole 40 mg tablet,delayed release (DR/EC) 40 mg PO DAILY Qty: 30 0RF dexamethasone 4 mg tablet 4 mg PO DAILY Qty: 2 0RF Rx Instructions: Starting Post-Operative Day #1 (Day after surgery) gabapentin 300 mg capsule 300 mg PO QHS Qty: 14 0RF oxycodone 5 mg tablet 5 mg PO Q4H PRNQty: 18 0RF Continued allopurinol 300 mg tablet 300 mg PO DAILY furosemide [Lasix] 20 mg tablet 20 mg PO DAILY metoprolol succinate 25 mg tablet extended release 24 hr 25 mg PO DAILY lisinopril 20 mg tablet 20 mg PO DAILY Discontinued aspirin 81 mg capsule 81 mg PO DAILY Discharge Instructions Additional Instructions: Total Knee Discharge Instructions Activity: The most important activity is to walk and to work on gentle motion (both flexion and extension). You should try to take short walks a few times a day. It is important that when resting you work on keeping the knee straight. Avoid putting a pillow behind the knee as this will encourage flexion. Work on range of motion exercises as provided by Physical Therapy. Please do not try to advance off of the walker within the first 2 weeks. Given the fracture that you had in the femur is important that we offload when necessary. - Start outpatient physical therapy within 2 weeks. - You should wear the ELEANOR hose on both legs for 2 weeks. You may remove these at night. You may also use any compression sock in place of the ELEANOR hose. - Utilize [employer] to review exercises, see videos on exercises and obtain basic information pertaining to your surgery and your recovery. Dressing: Remove the Jacob wrap by 2 days after your surgery and put on the ELEANOR stocking given to you from the hospital. Keep the surgical dressing (underneath the JACOB wrap) in place for at least one week. After the first week it may be removed and replaced with light gauze and tape or nothing. The wound and dressing may get wet after 3 days but avoid soaking the dressing or otherwise it will need to be changed. Many people prefer covering the dressing with cling wrap (saran wrap) to minimize it from getting soaked. If it gets wet, just pat dry. If it starts to peel off then it will need to be changed. Medications: - You should take Tylenol and anti-inflammatory Celebrex as your primary pain control medications. If the Celebrex is too expensive or not covered, please call the office for another alternative (Advil/Ibuprofen or Naproxen/Aleve) - You have been prescribed a stronger pain medication Oxycodone for breakthrough pain, take as needed as prescribed. - You have also been prescribed a stomach acid reduction agent Pantoprozole to help reduce stomach acid and reflux. - You have been prescribed Gabapentin to take at night for restlessness and nerve pain. - You will be taking Aspirin 81mg twice a day for DVT prevention unless instructed otherwise. - You have also been prescribed Decadron to take to control post-operative nausea and pain. You will start this tomorrow. - If you have constipation you should take Colace or Miralax (both [id number]). It takes most people 3-4 days to have a bowel movement. Follow-up: 2 weeks If you have any acute concerns or questions, please do not hesitate to contact the office at [phone]. You may contact Dr. Paulino with any questions after hours through the hospital at [phone] or on his cell phone at [phone]. Referrals: Marcel Paulino MD [ [facility] STAFF PHYSICIAN] - Activity:: Activity as Tolerated Equipment/Supplies:: Walker Diet:: As Tolerated Discharge Orders Discharge Orders: Discharge Order (Routine); Ordered 09/30/23 Ordered By: Marcel Paulino DS: Summary Time Spent with Patient providing and/or coordinating discharge services: Less than 30 minutes Status at Discharge Functional status at discharge: uses cane/walker Overall status at discharge: patient is progressing back to baseline Mental Status: mental status grossly normal Speech and Movement: speech and movement normal Mood: congruent mood Affect: normal affect Quality:SDOH Health Related Social Needs: Health related social needs details no needs at this time. Health related social needs details: no needs at this time. Exam Narrative Exam Narrative: Sitting up in the bed. No acute distress. Alert and orient x 3. Left lower extremities evaluated. He is able to straight leg raise with no lag and against some resistance. The knee is stable to varus and valgus stress. There is some pain with palpation anteriorly and laterally about the left femur. Sensation intact light touch over the deep and superficial peroneal nerve. Palpable DP and PT pulse. Psych Mental Status: mental status grossly normal Speech and Movement: speech and movement normal Mood: congruent mood Affect: normal affect DS: Data Vitals/I&O Vitals and I&O: Vital Signs Temperature 36.7 C 09/30/23 07:36 Temperature Source Temporal Artery Scan 09/30/23 07:36 Pulse 56 L 09/30/23 07:36 Pulse Rhythm Regular 09/29/23 20:00 Respiratory Rate 14 09/30/23 07:36 Respiratory Effort Normal, Non-Labored 09/29/23 20:00 Respiratory Depth Normal 09/29/23 20:00 Respiratory Pattern Normal 09/29/23 20:00 Blood Pressure 119/48 L 09/30/23 07:36 Blood Pressure Mean 106 09/29/23 10:23 Pulse Oximetry 96 09/30/23 07:36 Oxygen Delivery Method Room Air 09/30/23 07:36 Oxygen Flow Rate 0 09/30/23 07:36 Pain Level 2 09/29/23 19:50 Comment Nurse Sunni was in room while vitals were taken. 09/29/23 18:05 Intake & Output 09/29/23 09/29/23 09/30/23 11:59 23:59 11:59 Intake Total 100 / 1650 1550 / 1650 1050 / 1050 Balance 100 / 1650 1550 / 1650 1050 / 1050 Weight 130.1 kg 129.727 kg Intake: IV 100 / 1350 1250 / 1350 1050 / 1050 Oral 300 / 300 Other: Urine Color Yellow Urine Appearance Clear Clear Urine Odor Strong Comment did not void since 10:00 am. void in toilet Emesis Description Clear/Water Voiding Methods Toilet Data Completed and Pending Labs on day of discharge: Labs from last 24 hours 09/30/23 06:40 WBC 11.12 H RBC 4.41 Hgb 11.9 L Hct 35.9 L MCV 81 MCH 27.0 MCHC 33.1 RDW 15.8 H Plt Count 166 MPV 10.3 Sodium 140 Potassium 4.5 Chloride 108 H Carbon Dioxide 25.9 Anion Gap 6.1 BUN 40 H Creatinine 1.4 H Est GFR (CKD-EPI 2020) 53.74 Glucose 145 H Calcium 8.2 L PFSH All Active Problems Periprosthetic fracture around internal prosthetic left knee joint (Acute) Aseptic loosening of prosthetic knee (Acute) History of total left knee replacement (Acute 07/24/20) Sleep apnea (Acute) Hypertension (Chronic) Gout (Chronic) Surgical History History of arthroscopy of right knee History of arthroscopy of left knee Social History Smoking/Tobacco Use Status: Never Smoking risk assessment performed?: Yes Alcohol Intake: current Alcohol Intake frequency: a few times a week Drug use: Never Substance use type: does not use Housing: house Do you feel safe at home: Yes Do you feel safe in your relationship?: Yes Time Spent with Patient Time Spent with Patient: <45 minutes Time was spent: preparing to see the patient(eg.review tests), ordering medications,tests, procedures, indepentently interpreting results and counseling the patient
[2023-09-30 11:16] VITALS: BP 143/73; PULSE 74; RESP 18; TEMP 37.1; O2SAT 96
[2023-09-30] MEDS: Docusate Sodium 100 MG CAP PO (13:27)
== END 2023-09-30 15:06 | disposition home or self-care (01) | DRG 467 ==
LOC: PDS 17:04 → MS 09-30 07:44
PROVIDERS: Admitting Provider Student in an Organized Health Care Education/Training Program; PCP Internal Medicine; Visit Provider Student in an Organized Health Care Education/Training Program
PROC: 0SPD0JZ Removal of Synthetic Substitute from Left Knee Joint, Open Approach (ICD-10-PCS; CPT 27487; principal; 2023-09-29 12:30)
DX: T84.038A Mechanical loosening of other internal prosthetic joint, initial encounter (principal); M96.89 Other intraoperative and postprocedural complications and disorders of the musculoskeletal system; Z96.652 Presence of left artificial knee joint; M97.12XA Periprosthetic fracture around internal prosthetic left knee joint, initial encounter; T84.84XA Pain due to internal orthopedic prosthetic devices, implants and grafts, initial encounter; I10 Essential (primary) hypertension; M65.862 Other synovitis and tenosynovitis, left lower leg; G47.30 Sleep apnea, unspecified; Z79.899 Other long term (current) drug therapy
CPT/HCPCS: 27487; 36415; 73552; 76942; 80048; 85027; 97162; 73560; C1776; J0665; J0690; J1010; J1171; J2001; J2250; J2405; J2704; J8540

== ENCOUNTER 2023-10-12 13:51 | Outpatient (CLI) | payer MEDICARE, SELFPAY ==
--- NOTE | 2023-10-12 13:00 | DI.RAD_ITS ---
Exam(s) XR TIB/FIB LT XR KNEE LT 2V AP,LAT EXAM: XR KNEE LT 2V AP,LAT INDICATION: LEFT KNEE PAIN. COMPARISON: CR XR FEMUR LT from 09/29/2023 CR XR KNEE LT 2V AP,LAT from 09/30/2023 CR XR TIB/FIB LT from 10/12/2023 TECHNIQUE: 2D digital imaging was performed. Two views. FINDINGS: There has been no change in the alignment of the orthopedic hardware. No abnormal bony lucencies. S ome anterior soft tissue swelling remains present. There are mild degenerative changes at the ankle spurring from the malleoli. Ankle joint space is ma intained. There is an old healed distal fibular fracture. Impression: Stable appearance of hardware. Mild degenerative changes at the ankle. DATA REPOSITORY: RADIATION DOSE DELIVERED:
== END 2023-10-12 13:52 | disposition home or self-care (01) ==
LOC: DIORS 13:51
PROVIDERS: PCP Internal Medicine; Referring Provider Internal Medicine; Visit Provider Student in an Organized Health Care Education/Training Program
DX: M97.12XA Periprosthetic fracture around internal prosthetic left knee joint, initial encounter (principal); Z47.1 Aftercare following joint replacement surgery; Z96.652 Presence of left artificial knee joint
CPT/HCPCS: 73560; 73590

== ENCOUNTER 2023-11-09 14:22 | Outpatient (CLI) | payer MEDICARE, SELFPAY ==
--- NOTE | 2023-11-09 13:30 | DI.RAD_ITS ---
Exam(s) XR KNEE LT 2V AP,LAT EXAM: XR KNEE LT 2V AP,LAT INDICATION: f/u revision TKA with fracture. COMPARISON: CR XR KNEE LT 2V AP,LAT from 10/12/2023 TECHNIQUE: 2D digital imaging was performed. Two views. FINDINGS: Stable appearance of revised total knee prosthesis. Prominent enthesophytes again noted at the abbott la and tibial tubercle. No suspicious bony lucencies. DATA REPOSITORY: RADIATION DOSE DELIVERED:
== END 2023-11-09 14:23 | disposition home or self-care (01) ==
LOC: DIORS 14:22
PROVIDERS: PCP Internal Medicine; Referring Provider Internal Medicine; Visit Provider Student in an Organized Health Care Education/Training Program
DX: Z96.652 Presence of left artificial knee joint (principal); Z47.1 Aftercare following joint replacement surgery; M97.12XD Periprosthetic fracture around internal prosthetic left knee joint, subsequent encounter; T84.038D Mechanical loosening of other internal prosthetic joint, subsequent encounter
CPT/HCPCS: 73560

== ENCOUNTER 2023-12-21 16:12 | Outpatient (CLI) | payer MEDICARE, SELFPAY ==
--- NOTE | 2023-12-21 14:49 | DI.RAD_ITS ---
Exam(s) XR KNEE LT 2V AP,LAT EXAM: XR KNEE LT 2V AP,LAT CLINICAL HISTORY: fx L TKR. TECHNIQUE: 2D digital imaging was performed. Three views. COMPARISON: CR XR KNEE LT 3V AP,LAT,EFRAÍN from 08/17/2023 NM NM BONE SCAN 3 PHASE from 09/09/[address] LOWER EXTREMITY LT WO from 09/09/2023 CR XR KNEE LT 2V AP,LAT from 09/29/2023 CR XR FEMUR LT from 09/29/2023 CR XR KNEE LT 2V AP,LAT from 09/30/2023 CR XR TIB/FIB LT from 10/12/2023 CR XR KNEE LT 2V AP,LAT from 10/12/2023 CR XR KNEE LT 2V AP,LAT from 11/09/2023 FINDINGS: BONES: Subacute appearing fracture at the medial distal diaphysis of the femur extending adjacent to the prosthesis, only visible on the AP view. retrospectively visible on prior exams. Continued hea ling of the fracture previously noted below the level of the tip of the tibial component of the prost hesis. No bony destructive lesion is seen. JOINTS: Stable alignment of revised knee prosthesis.. No joint effusion is seen. SOFT TISSUE: Normal. IMPRESSION: Nondisplaced subacute fracture at the medial distal femoral shaft. Continued healing of fracture of the proximal tibia, distal to the prosthesis. DATA REPOSITORY: RADIATION DOSE DELIVERED:
== END 2023-12-21 16:13 | disposition home or self-care (01) ==
LOC: DIORS 16:12
PROVIDERS: PCP Internal Medicine; Referring Provider Internal Medicine; Visit Provider Student in an Organized Health Care Education/Training Program
DX: Z47.1 Aftercare following joint replacement surgery (principal); Z96.652 Presence of left artificial knee joint
CPT/HCPCS: 99024; 73560

== ENCOUNTER 2024-02-26 09:41 | Outpatient (CLI) | payer MEDICARE, SELFPAY ==
--- NOTE | 2024-02-26 08:15 | DI.RAD_ITS ---
Exam(s) XR STANDING ALIGNMENT EXAM: XR STANDING ALIGNMENT CLINICAL HISTORY: TKR Planning. TECHNIQUE: 2D digital imaging was performed. COMPARISON: CR XR TIB/FIB LT from 10/12/2023 CR XR KNEE LT 2V AP,LAT from 11/09/2023 CR XR KNEE LT 2V AP,LAT from 12/21/2023 CR XR KNEE RT 1V from 02/26/2024 FINDINGS: Left knee prosthesis is again noted as are 2 encircling wires in the distal diaphysis of the left fem ur. No fracture or loosening of prosthesis evident. In the opposite-right knee there is kevl-[id number] narrowing of the medial compartment and degenerative subarticular cysts in the tibial plateau medial aspect. More moderate degenerative changes are note d in the lateral compartment. Both hips appear unremarkable as do the ankles. No significant osseous lesions and bone density is n ormal. IMPRESSION: Advanced fkzt-ms-pmtd narrowing of the medial compartment of the right knee. Stable appearance of the left knee prosthesis. DATA REPOSITORY: RADIATION DOSE DELIVERED:
--- NOTE | 2024-02-26 08:15 | DI.RAD_ITS ---
Exam(s) XR KNEE RT 1V EXAM: XR KNEE RT 1V CLINICAL HISTORY: TKR Planning. TECHNIQUE: 2D digital imaging was performed. COMPARISON: CR XR KNEE LT 2V AP,LAT from 12/21/2023 CR XR STANDING ALIGNMENT from 02/26/2024 FINDINGS: Single lateral view There is mnkv-hr-kywk narrowing of the medial compartment. Also advanced osteoarthritic degenerative changes noted in the patellofemoral compartment. Also enthesophytes evident anteriorly at the inser tional aspect of the quadriceps and patellar tendons. Also at the level of the anterior tibial tuber lex insertion site of the patellar tendon. On the posterior aspect of the distal femur there is a bony excrescence which is either an osteo kerri droma or prominent osteophyte off the posterior aspect of 1 of the femoral condyles. IMPRESSION: Advanced osteoarthritic degenerative changes in the right knee as described above. DATA REPOSITORY: RADIATION DOSE DELIVERED:
== END 2024-02-26 09:42 | disposition home or self-care (01) ==
LOC: DIORS 09:42
PROVIDERS: PCP Internal Medicine; Referring Provider Internal Medicine; Visit Provider Physician Assistant
DX: M17.11 Unilateral primary osteoarthritis, right knee (principal)
CPT/HCPCS: 99214; 73560; 77073

== ENCOUNTER 2024-04-01 00:59 | Outpatient (CLI) | payer MEDICARE, SELFPAY ==
[2024-04-01 09:46] LABS: HCT 44.8 % (40.0-50.0); HGB 14.7 g/dL (13.5-17.5); MCH 26.2 pg (27.0-33.0); MCHC 32.8 % (32.0-36.0); MCV 80 fL (80-95); Platelet Count 208 10^3/uL (130-400); RBC 5.61 10^6/uL (4.36-5.78); RDW 15.9 % (11.8-14.1); RDW-SD 45.5 fL
[2024-04-01 10:32] LABS: Anion Gap 9.9 mmol/L (3-11); BUN 39 mg/dL (7-18); CO2 25.1 mmol/L (21.0-32.0); CREATININE 1.4 mg/dL (0.70-1.30); Calcium 9.1 mg/dL (8.5-10.1); Chloride 110 mmol/L (98-107); Glucose 102 mg/dL (74-106); Potassium 4.5 mmol/L (3.5-5.1); Sodium 145 mmol/L (136-145)
== END 2024-04-01 01:00 | disposition home or self-care (01) ==
LOC: LBO 00:59
PROVIDERS: PCP Internal Medicine; Visit Provider Student in an Organized Health Care Education/Training Program
DX: M17.11 Unilateral primary osteoarthritis, right knee (principal); Z01.818 Encounter for other preprocedural examination
CPT/HCPCS: 36415; 80048; 85027

== ENCOUNTER 2024-04-19 07:14 | Day surgery (SDC) | payer MEDICARE, SELFPAY ==
[2024-04-19] VITALS (26 sets, daily range): BP systolic 165–199; BP diastolic 78–116; PULSE 44–68; RESP 11–20; TEMP 36–36.9; O2SAT 95–99; BMI 45.2
--- NOTE | 2024-04-19 07:18 | W.PM.DSUDISC ---
Date of service: 04/19/24 Discharge Plan Disposition Patient Disposition: Home Condition: Good Discharge Details Reason For Visit: Right knee DJD Attending Provider: Marcel Paulino Primary Care Provider: Mendel Rausch Home Meds and New Rx's Prescriptions: New acetaminophen 500 mg tablet 1,000 mg PO Q8H PRN Qty: 90 0RF Rx Instructions: Take two tablets up to every 8 hours as needed for pain aspirin 81 mg tablet,delayed release (DR/EC) 81 mg PO BID 30 Days Qty: 60 0RF celecoxib [Celebrex] 200 mg capsule 200 mg PO BID PRNQty: 60 0RF Rx Instructions: Take one tablet twice daily for pain and inflammation docusate sodium [Colace] 100 mg capsule 100 mg PO BID Qty: 30 0RF pantoprazole 40 mg tablet,delayed release (DR/EC) 40 mg PO DAILY Qty: 14 0RF dexamethasone 4 mg tablet 4 mg PO DAILY Qty: 2 0RF Rx Instructions: Take one tablet once daily for two days gabapentin 300 mg capsule 300 mg PO QHS Qty: 14 0RF Rx Instructions: Take one tablet at bedtime Continued allopurinol 300 mg tablet 300 mg PO DAILY furosemide [Lasix] 20 mg tablet 20 mg PO DAILY metoprolol succinate 25 mg tablet extended release 24 hr 25 mg PO DAILY lisinopril 20 mg tablet 20 mg PO DAILY Discontinued aspirin [Adult Aspirin Regimen] 81 mg tablet,delayed release (DR/EC) 81 mg PO DAILY celecoxib 200 mg capsule 200 mg PO BID PRN (Reason: pain) Qty: 60 1RF Discharge Instructions Additional Instructions: Total Knee Discharge Instructions Activity: The most important activity is to walk and to work on gentle motion (both flexion and extension). You should try to take short walks a few times a day. It is important that when resting you work on keeping the knee straight. Avoid putting a pillow behind the knee as this will encourage flexion. Work on range of motion exercises as provided by Physical Therapy. - Start outpatient physical therapy within 2 weeks. - You should wear the ELEANOR hose on both legs for 2 weeks. You may remove these at night. You may also use any compression sock in place of the ELEANOR hose. - Utilize [employer] to review exercises, see videos on exercises and obtain basic information pertaining to your surgery and your recovery. Dressing: Remove the Jacob wrap by 2 days after your surgery and put on the ELEANOR stocking given to you from the hospital. Keep the surgical dressing (underneath the JACOB wrap) in place for at least one week. After the first week it may be removed and replaced with light gauze and tape or nothing. The wound and dressing may get wet after 3 days but avoid soaking the dressing or otherwise it will need to be changed. Many people prefer covering the dressing with cling wrap (saran wrap) to minimize it from getting soaked. If it gets wet, just pat dry. If it starts to peel off then it will need to be changed. Medications: - You should take Tylenol and anti-inflammatory Celebrex as your primary pain control medications. If the Celebrex is too expensive or not covered, please call the office for another alternative (Advil/Ibuprofen or Naproxen/Aleve) - You reported having leftover narcotic from your last surgery. Use this stronger pain medication Oxycodone for breakthrough pain, take as needed as prescribed. - You have also been prescribed a stomach acid reduction agent Pantoprozole to help reduce stomach acid and reflux. - You have been prescribed Gabapentin to take at night for restlessness and nerve pain. - You will be taking Aspirin 81mg twice a day for DVT prevention unless instructed otherwise. - You have also been prescribed Decadron to take to control post-operative nausea and pain. You will start this tomorrow. - If you have constipation you should take Colace (which has been prescribed) or Miralax (which is available [id number]). It takes most people 3-4 days to have a bowel movement. Follow-up: 2 weeks If you have any acute concerns or questions, please do not hesitate to contact the office at [phone]. You may contact Dr. Paulino with any questions after hours through the hospital at [phone] or on his cell phone at [phone]. Stand Alone Forms: Anesthesia Discharge InstLong, Atilio.Nerve Block Instructions, Shayna Grier ([facility]) Referrals: Marcel Paulino MD [ [facility] STAFF PHYSICIAN] - 05/05/24 8:30 am Equipment/Supplies: Walker Activity:: Elevate Remove Dressings/Wound Care:: Do Not Remove Shower/Bathe:: Cover Diet:: As Tolerated Discharge Orders Discharge Orders: Discharge Order (Routine); Ordered 04/19/24 Ordered By: Carey Ramos
[2024-04-19] MEDS: Celecoxib 200 MG CAP 400 MG PO (07:47)
[2024-04-19] MEDS: Acetaminophen 500 MG TAB 1000 MG PO (07:47)
[2024-04-19] MEDS: Gabapentin 300 MG CAP PO (07:47)
--- NOTE | 2024-04-19 07:53 | ANES.PREOP_ITS ---
General Info Date of Service Date Performed: 04/19/24 Height: 5 ft 9 in Weight: 139 kg Body Mass Index (BMI): 45.2 Surgical Procedure: Operation Date: 04/19/24 09:40 Proposed Procedure Side Surgeon p Knee Total Arthroplasty Right Marcel Paulino MD Meds Allergies and Home Medications Allergies Allergy/AdvReac Type Severity Reaction Status Date / Time Sulfa (Sulfonamide Allergy Intermediate Skin Rash Verified 04/19/24 07:42 Antibiotics) bactrim Allergy Unknown Other (See Uncoded 04/19/24 07:42 Comment) Home Medication ?Medication ?Instructions ?Recorded allopurinol 300 mg tablet 300 mg PO DAILY 06/16/23 furosemide 20 mg tablet (Lasix) 20 mg PO DAILY 06/16/23 lisinopril 20 mg tablet 20 mg PO DAILY 06/16/23 metoprolol succinate 25 mg 25 mg PO DAILY 06/16/23 tablet,extended release 24 hr acetaminophen 500 mg tablet 1,000 mg (2 x 500 mg) PO Q8H PRN 04/19/24 pain #90 tabs aspirin 81 mg tablet,delayed 81 mg PO BID 30 days #60 tabs 04/19/24 release celecoxib 200 mg capsule (Celebrex) 200 mg PO BID PRN #60 caps 04/19/24 dexamethasone 4 mg tablet 4 mg PO DAILY #2 tabs 04/19/24 docusate sodium 100 mg capsule 100 mg PO BID #30 caps 04/19/24 (Colace) gabapentin 300 mg capsule 300 mg PO QHS #14 caps 04/19/24 oxycodone 5 mg tablet 5 mg PO Q4H PRN #18 tabs 04/19/24 pantoprazole 40 mg tablet,delayed 40 mg PO DAILY #14 tabs 04/19/24 release Current Visit Medications: Current Medications Generic Name Dose Route Start Last Admin Trade Name Freq PRN Reason Stop Dose Admin Acetaminophen 1,000 mg 04/19/24 06:00 04/19/24 07:47 Acetaminophen 500 Mg Tab PO 05/18/24 23:59 1,000 mg PREOP JOHN Administration Celecoxib 400 mg 04/19/24 06:00 04/19/24 07:47 Celecoxib 200 Mg Cap PO 05/18/24 23:59 400 mg PREOP JOHN Administration Gabapentin 300 mg 04/19/24 06:00 04/19/24 07:47 Gabapentin 300 Mg Cap PO 05/18/24 23:59 300 mg PREOP JOHN Administration Hydromorphone HCl 0.5 mg 04/19/24 07:16 Hydromorphone 2 Mg/Ml Syr IVP 05/19/24 07:15 Q2H PRN PRN Cefazolin Sodium/Dextrose 2 gm in 50 mls @ 100 mls/hr 04/19/24 06:00 Ancef Duplex IVPB 05/18/24 23:59 PREOP JOHN Tranexamic Acid/Sodium Chloride 1,000 mg in 100 mls @ 600 mls/hr 04/19/24 06:00 IVPB 05/18/24 23:59 PREOP JOHN Ringer's Solution 1,000 mls @ 80 mls/hr 04/19/24 06:30 IV 05/19/24 06:29 INFUSION JOHN Cefazolin Sodium/Dextrose 1 gm in 50 mls @ 100 mls/hr 04/19/24 08:00 Ancef Duplex IVPB 04/20/24 00:29 Q8H JOHN IV Miscellaneous Supplies 1 each 04/19/24 06:00 Iv Access IV 05/18/24 23:59 DIRECTED JOHN Oxycodone HCl 0 mg 04/19/24 07:16 Oxycodone 5 Mg Tab PO 05/19/24 07:15 Q3H PRN PRN Pain Sodium Chloride 0 ml 04/19/24 06:00 Normal Saline Flush 10 Ml Syr IV 05/18/24 23:59 PRN PRN Sodium Chloride 0 ml 04/19/24 06:00 Normal Saline 10 Ml Vial IJ 05/18/24 23:59 DIRECTED PRN Sterile Water 0 ml 04/19/24 06:00 Water,Injection,Sterile 10 Ml Vial IJ 05/18/24 23:59 DIRECTED PRN PFSH Active Problems Active Problems: Problem Status Onset Code Osteoarthritis of right knee Chronic M17.11 Sleep apnea Acute G47.30 Hypertension Chronic I10 Gout Chronic M10.9 Surgical History Surgical History (Updated 04/19/24 @ 08:43 by Jenae Hankins RN) History of revision of total replacement of left knee joint (09/29/23) Periprosthetic fracture around internal prosthetic left knee joint (09/29/23) ORIF with cabling at the time of surgery: 09/29/2023 History of total left knee replacement (07/24/20) History of arthroscopy of right knee History of arthroscopy of left knee Tobacco Smoking/Tobacco Use Status: Never Alcohol Alcohol Intake: current Alcohol intake frequency: a few times a week Alcohol type: hard liquor Substance Use Substance use: Never Substance use type: does not use Vital Signs and Lab Results Vital Signs Most Recent Vital Signs in EMR: Most Recent Vital Signs Temp Pulse Resp BP Pulse Ox 36.7 C 67 16 198/78 H 98 04/19/24 07:35 04/19/24 07:35 04/19/24 07:35 04/19/24 07:35 04/19/24 07:35 Lab Results Blood Type / Crossmatch: No Data to Display Complete Blood Count: White Blood Count 6.00 10^3/uL (4.4-10.8) 04/01/24 09:41 Red Blood Count 5.61 10^6/uL (4.36-5.78) 04/01/24 09:41 Hemoglobin 14.7 g/dL (13.5-17.5) 04/01/24 09:41 Hematocrit 44.8 % (40.0-50.0) 04/01/24 09:41 Platelet Count 208 10^3/uL (130-400) 04/01/24 09:41 Complete Metabolic Panel: Sodium 145 mmol/L (136-145) 04/01/24 09:41 Potassium 4.5 mmol/L (3.5-5.1) 04/01/24 09:41 Chloride 110 mmol/L (98-107) H 04/01/24 09:41 Carbon Dioxide 25.1 mmol/L (21.0-32.0) 04/01/24 09:41 BUN 39 mg/dL (7-18) H 04/01/24 09:41 Creatinine 1.4 mg/dL (0.70-1.30) H 04/01/24 09:41 Est GFR (CKD-EPI 2020) 53.40 (mL/min/1.73m2) 04/01/24 09:41 Calcium 9.1 mg/dL (8.5-10.1) 04/01/24 09:41 Glucose 102 mg/dL (74-106) 04/01/24 09:41 Liver Function Panel: No Data to Display Coagulation Panel: No Data to Display Cardiac Panel: No Data to Display Arterial Blood Gas: No Data to Display Venous Blood Gas: No Data to Display Pancreas Panel: No Data to Display Thyroid Panel: No Data to Display Infectious Disease: No Data to Display Blood Cultures: No Data to Display Toxicology Panel: No Data to Display Imaging and Studies Imaging and Studies Study information below may be from another EMR and interpreted by another provider. Please see original notes in EMR for more complete details. Echocardiogram Summary: 01/21/23: (Outpatient [place]): 50-55%, no significant valvular disease Anesthesia Assessment and Plan Anesthesia History Personal History: No History of Anesthesia Complications Family History: No Family History of Anesthesia Complications Exercise Tolerance Exercise Tolerance: Metabolic Equivalents>4 Cardiac & Pulmonary Exam Cardiac Exam: Normal S1/S2 Heart Sounds Pulmonary Exam: Clear Bilateral Breath Sounds Implantable Cardiac Device Does patient have a Pacemaker or an ICD?: No Airway Exam Known Difficult Airway: No Mallampati Class: 2 Mouth Opening: Normal (> 3cm) Thyromental Distance: Greater than 3 cm Neck Range of Motion: Full ROM Neck Circumference: Thick Teeth Condition: Normal Dentition ASA Classification ASA Score: ASA 3 Emergency Case?: No NPO Status NPO Status: NPO Clears >2 hours, Solids >8 hours Anesthesia Plan Resuscitation Status: Full Code Anesthesia Technique: Spinal Anesthesia Airway Planned: Natural Airway Pain Management: Surgeon and patient request nerve block Monitors Used: Standard Monitors and SedLine
[2024-04-19] MEDS: Lactated Ringers 1,000 ML 80 ML IV (08:14)
[2024-04-19] MEDS: ceFAZolin 2 GM/50 ML BAG IVPB (09:09)
[2024-04-19] MEDS: TRANEXAMIC ACID/SOD. CHL. 1,000 MG/100 ML BAG 600 MG IVPB (09:20)
--- NOTE | 2024-04-19 09:41 | W.ANESNERVE ---
Nerve Block Single Injection Procedure Date and Time Date Performed: 04/19/24 Procedure Start: 08:40 Location Where Procedure Performed Procedure Location: Day Surgery Unit Reason Performed: Postoperative Analgesia Requesting Provider: Marcel Paulino Timeout Performed Timeout Performed: Yes Monitoring Used ECG, Blood Pressure, SpO2 and See EMR for corresponding vital signs Sterility Sterility: Hand Hygiene, Surgical Cap, Surgical Mask, Sterile Gloves and Chlorhexidine Sedation Given During Procedure Sedation Given (Indicate Dose Given): Versed IV Dose:: 2mg Patient Mental Status Patient Mental Status: Sedate with meaningful communication Nerve Block 1st Nerve Block: Laterality: Right Block Type: Adductor Canal Ultrasound Image Saved?: Yes Needle / Catheter Used: 120mm SonoPlex II Local Anesthetic Bolus (Indicate Dose Given): Lidocaine used for local infiltration of skin, Injected in 3-5ml increments after negative blood aspiration, Bupivacaine 0.25% Dose:: 10mL and Exparel Dose:: 10mL Additives (Indicate Dose Given): None Ultrasound: Sterile probe cover and gel used Nerve Stimulator: Supplement to Ultrasound use and No twitch or parasthesia noted < 0.5 mA Paresthesia: None Procedure Tolerated: No Complications Procedure Outcome: Successful Performed By: Kimberly Steen
[2024-04-19] MEDS: fentaNYL 100 MCG/2 ML VIAL IVP ×2 (11:50→11:59)
[2024-04-19] MEDS: HYDROmorphone 1 MG/ML SYR IVP ×2 (12:01→12:15)
--- NOTE | 2024-04-19 12:46 | W.ANESPOSTOP ---
Postoperative Evaluation Date, Time and Location Date Performed: 04/19/24 Time Performed: 12:46 Patient Location: Day Surgery Unit Vital Signs Most Recent Imported Vital Signs: Most Recent Vital Signs Temp Pulse Resp BP Pulse Ox 36.6 C 48 L 14 173/83 H 97 04/19/24 12:28 04/19/24 12:33 04/19/24 12:33 04/19/24 12:33 04/19/24 12:33 Pain Score Most Recent Pain Score: Most Recent Pain Score Pain Level 4 04/19/24 12:28 Assessment Mental Status: Awake (Alert & Oriented to Patient Baseline) Airway and Respiratory Function: Patent airway with normal (patient baseline) respiratory exam Cardiovascular Function: Hemodynamically Stable Hydration Status: Adequately Hydrated Nausea & Vomiting: No Nausea or Vomiting Pain: Pain is tolerable per patient Peripheral Nerve Block: Regional nerve block not resolved at time of post operative discharge
--- NOTE | 2024-04-19 15:24 | PT.INIE ---
PT Notes Visit Reasons: Right knee DJD Physical Therapy Day Surgery Initial Evaluation Date: 04/19/2024 Referring Doctor: Carey Ramso, Dr Paulino PT Orders: PT CONSULT: s/p Ortho Surgery Precautions: WBAT RLE, TEDs x 2 weeks Patient Profile/Admitting Diagnosis: Patient is 74-year-old male presenting status post elective right TKA by Dr. Paulino on 04/19/2024. Postop uncomplicated PMHX: Sleep apnea, hypertension, gout History of revision of total replacement of left knee joint (09/29/23) Periprosthetic fracture around internal prosthetic left knee joint (09/29/23) ORIF with cabling at the time of surgery: 09/29/2023History of total left knee replacement (07/24/20) History of arthroscopy of right knee History of arthroscopy of left knee Social History/Home Situation: Patient resides with single level home 4 steps to enter with bilateral rails patient independent with all mobility and ADL function. Patient drives. Patient performs independent yard work and is active Equipment Owned/DME: 2 FWW Subjective: Patient reports he is feeling pretty well noting soreness to right thigh Objective: [] General Observation: Male semireclined on stretcher with Cryo/Cuff to right knee. present Mental Status: Alert and oriented x 4 cooperative motivated agreeable to participate Pain: 2/10 right knee ROM: [] Right Upper Extremity: WNL Left Upper Extremity: WNL Right Lower Extremity: WNL except knee 0 to 100 degrees Left Lower Extremity: WNL Strength: [] Right Upper Extremity: 5/5 Left Upper Extremity: 5/5 Right Lower Extremity: Hip flexion: 3 -/5; hip abduction: 3 -/5; hip extension: 3/5; knee extension: 3 /5; knee flexion: 3 -/5 ankle DF: 3/5 ; ankle PF: 3/5, patient requires cues to isolate quad during quad set to reduce compensation from glutes and hamstring. Left Lower Extremity: 5/5 Sensation: Intact Bed Mobility/Transfers: [] Supine to sit supervision Sit to stand supervision with cues for hand placement Stand to sit supervision with cues for hand placement Bed to chair supervision with FWW Gait: Patient ambulate with FWW initially contact-guard then able to progress to supervision 150 feet. Patient required cues to activate quad during mid stance for stability initially. Patient demonstrating knee flexion during swing phase on right throughout. Patient required cues for upright posture Stairs: 5 steps with rails supervision cues to activate quad during right single limb Balance: [] Static Sitting: Normal Dynamic Sitting: Good Static Standing: Good Dynamic Standing: Fair plus Special Tests: [] Mobility Limitations Standardized Measure [] [facility] AM-PAC 6 clicks Basic Mobility Inpatient Short Form: [] Raw Score 22 CMS Score: 20.91% Treatment: 50808 Informed Consent/Education: Patient instructed in purpose of PT consult. Packet containing TKA exercise protocol has been given to patient. Education and training on initial set of exercises that can be done at home have been completed with patient. Patient educated on providing cues for safe hand placement and encouraging patient to activate quad while walking and on the stairs. Assessment: Patient initially required seated rest after 30 feet of ambulation due to reports of lightheadedness and fatigue. Nurse notified vitals taken BP 191/85 pulse 58 MD aware. After rest patient denied further reports of lightheadedness and was able to progress with ambulation and stairs assessment. Patient is a 74-year-old male who presents with clinical signs and symptoms consistent with current/admitting diagnoses that have resulted to mobility limitations, gait instability, generalized weakness, and impairment of motor control as demonstrated by the following impairment level findings: 1. Decreased strength to right knee major muscle groups 2. Impaired standing balance 3. Limitation of joint range of motion in right knee Impairments are contributing to the following functional limitations: 1. Inability to safely ambulate without assistive device 2. Increase completion time for mobility ADL performance 3. Increased fall risk Patient is assessed as a moderate complexity based on the following: History: 74-year-old male with impairment level findings, functional limitations, and past medical history as indicated above Examination: Demonstrable impairment in strength, balance, and mobility level with underlying impairments and functional limitations as documented above Presentation: Evolving/stable Decision Making: Moderate Goals: N/A. Plan of Care/Treatment Plan: N/A. DISCHARGE RECOMMENDATIONS: Home with HEP and outpatient PT as scheduled TREATMENT CODE/TIME: 62534, [id number]/ [id number] Thank you for the opportunity to participate in the care of this patient. [facility]
--- NOTE | 2024-04-19 16:45 | W.PM.OP ---
Operative Note Operative Note PRE-OP DIAGNOSIS: Right Knee Osteoarthritis POST-OP DIAGNOSIS: same PROCEDURE: Right Total Knee Replacement with Intraoperative Navigation SURGEON: Marcel Paulino [employer]BAC[employer] DRYING MACHINE OPERATOR: Carey Ramos ANESTHESIA TYPE: Spinal Refer to Anesthesia Record ESTIMATED BLOOD LOSS: 200 PATHOLOGY: none sent TOURNIQUET TIME: 0 COMPLICATIONS: None Patient was transported to: PACU Patient's condition: stable Implants: 1. Depuy Attune Cementless Cruciate Retaining Femoral Component, Size 8 2. Depuy Attune Cementless Fixed Bearing Tibial Component, Size 7 3. Depuy Attune 8x6mm CR/FB Poly 4. Depuy Attune Patellar Component, Size 38 Indications: I have seen Blake in clinic for symptoms of RIGHT knee arthritis, confirmed with radiographic findings. Blake has exhausted nonoperative methods and was having significant limitations in daily function and desired better function and less pain. I discussed the technical details of a knee replacement. I explained the risks of the procedure to include, but not limited to, bleeding, infection, pain, stiffness, fracture, damage to nerves and vessels, damage to muscles and tendons, loosening, need for repeat procedure, blood clot and cardiopulmonary demise. Despite these risks, Blake elected to proceed. Findings: There was significant signs of arthritis throughout the knee with large osteophytes throughout. The case was challenging with exposure given the prominence of osteophytes in the very limited, restricted motion about the knee. At best he had 90 degrees of flexion preoperatively. Procedure Description: Blake was greeted in the preoperative holding area where the correct side was identified and marked. The consent was reviewed with the patient and signed. The history and physical was updated. All questions were answered. Preoperative mediacations were administered: Acetaminophen 1000mg, Celebrex 400mg, and Gabapentin 300mg. An adductor canal block was then administered by the anesthesia team in the DSU. Blake was taken back to the operating room. A spinal anesthestic was then administered. The patient was placed into the supine position on the operating room table. Posts were placed for positioning during the procedure. All bony prominences were well padded. Prophylactic antibiotics in the form of Cefazolin were administered. 1g of Tranxemic Acid was given intravenously within 30 minutes of incision. The right leg was then prepped with Chloraprep and draped in a standard fashion with impervious stockinette. A second prep with Chloraprep was performed prior to application of Iodine impregnated skin protection. A timeout to confirm correct identity, side and site, procedure, allergies, anesthesia, and medical concerns was performed. With the knee in some flexion, a midline incision was made overlying the knee. Full thickness skin flaps were raised once the extensor mechanism was encountered. These were raised medially and laterally. Any bleeding was controlled with electrocautery. Once the extensor mechanism was fully exposed, a medial parapatellar arthrotomy was performed in a flexed position. All bleeding from the arthrotomy and the geniculate arteries was coagulated. A medial subperiosteal peel was performed with electrocautery to the midcoronal plane. Due to the significant varus deformity the entire medial tibial plateau was exposed. The fat pad was removed while keeping the patellar tendon protected. The anterior distal femur synovium was removed for later visualization. The ACL and PCL were resected and the anterior horn of the lateral meniscus was transected. The knee was then flexed with the patella everted. Large osteophytes from the tibia were removed. Large osteophytes from the femur were removed. Exposure was challenging given the limited flexion which was there preoperatively. A single starting pin was then placed 1cm anterior to the PCL insertion and the notch in the direction of the femoral head. The OrthoAlign device was applied over the pin. It was oriented to be in line with the epicondylar axis and the trochlear groove. It was then pinned into place. The navigation computer was then turned on and calibrated. The distal femur cut was set at 1 degrees varus and 3.5 degrees flexion. The distal femur cutting guide then was positioned for a 9mm cut. The distal femur was cut with an oscillating saw while protecting the soft tissues. The tibia was then addressed. The OrthoAlign device was placed over the tibial tubercle and medial tibia and secured into position. Once again, OrthoAlign was calibrated and then set for a 2 degree varus cut and 5.5 degrees of posterior slope. With this locked into position, the cut thickness stylus was used to assess cut thickness. The medial side, most involved side, was set for a 5mm cut. This was then held in position and pinned into place with 2 additional pins and a cross pin for stability. The medial and lateral collateral ligaments were protected and the cut was performed. With this completed, it was assessed and noted to be of appropriate dimensions. The guide and OrthoAlign was removed. A spacer block was inserted and the knee was brought into extension to ensure enough space was present. . The Orthoalign gap balancing device was then placed in extension. This was used to ensure that the ligaments were properly balanced with up to 2 to 3 mm laxity laterally compared medially. The extension gap was measured as 18mm. The knee was then brought into 90 degrees of flexion and the ligament flakeboard line tender was once again placed. Under the same amount of force the flexion gap was measured. The Attune specific jig was placed and the flexion gap was made to match the extension gap. The femur was then sized as a size 8. The 4-in-1 cutting guide was the placed. An zoe wing was used to confirm appropriate position of the anterior cut to avoid notching. This cutting guide was ensured to be flush on the cut surface and then pinned into place with headed pins. While protecting the soft tissues, quad tendon, and collateral ligaments, the anterior and posterior cuts were performed with a saw. The central two pins were removed and the posterior and anterior chamfers were cut next. The notch-cutting guide was placed. This was pinned to lateralize the femoral component as much as possible while keeping it flush on the cut surface. This was then pinned into position. A saw was used to make the notch cut. A rasp smoothed the cut surfaces. The medial and lateral menisci were removed. A trial femoral component was then inserted, impacted down to the cut surfaces, and the lug holes were drilled. A provisional trial tibial component was placed and the knee was brought through range of motion. The polyethylene was trialed until there was good flexion and extension with excellent stability to the medial and lateral collaterals. The patella was tracking without thumbs. A size 6mm polyethylene component provided the best range of motion and stability with less than 2mm gapping with medial and lateral stress and full extension without significant hyperextension. The tibial cut surface was fully exposed. The tibia was then sized as a 7. The tibia had been previously marked during trialing to correspond to the center of the tibial component to help with rotation. The trial was aligned to this manny, approximately rotated to the medial 1/3rd of the tibial tubercle. The trial was pinned into place. The tibia was prepared with a reamer and a keel punch and lug holes. The knee was then brought into extension and the patella was measured as 29mm. Using the patellar clamp and cut guide, this was resected to a flat surface with at least 13mm of thickness remaining. The size 38 patella fit the best. This was oriented and then clamped into position. The lugs were drilled. The trial components were removed. The final components were opened on the back table. The periosteal and capsular tissues, especially posteriorly, around the knee were then systematically injected with a periarticular cocktail consisting of 246mg of Ropivacaine, 0.5mg of Epinephrine, 0.08mg of Clonidine, and 30mg of Ketorolac, diluted to 100cc. On the back table, with the implants opened, the cement was mixed. One batch of high viscosity cement was prepared with vacuum assistance. After the cement was ready a small amount was placed on the cut surface of the patella and the patellar button was clamped into position and held. While the cement was hardening, the cementless knee components were placed. Starting with the tibial component, the tibia was subluxed anteriorly and the lug holes of the component were lined up. The tibia was then impacted with an impactor and mallet until the tibial component was in contact with the tibia. Then, the femoral component was inserted. The lug holes were aligned and the component was impacted into position. The final polyethylene component was inserted. The knee was irrigated with Surgiphor Betadine solution. This was allowed to sit in the knee for 3 minutes and then it was thoroughly irrigated out with saline. After the cement had finally cured, approximately 15min, the clamp was removed from the patella and the knee was taken through range of motion. The patella was tracking with a no-thumbs technique. The capsule was then reapproximated with a No. 1 Vicryl at multiple locations. The capsule was finally closed with a No. 2 Stratafix, barbed suture. Deep tissues were then reapproximated with 0 Vicryl and 2-0 Vicryl. The skin was closed with a running 3-0 Monocryl in a subcuticular fashion. This was reinforced with skin glue. A Mepilex silver dressing was applied along with a [id number] JEFFREY wrap. A CryoCuff was applied. Blake was transferred to the hospital bed without difficulty an suffering no apparent complication. Blake has a good prognosis. Physical therapy will start today and without restrictions, weight-bearing as tolerated. Aspirin 81mg BID will be used for DVT prophylaxis. Date of Procedure: 04/19/24
== END 2024-04-19 15:18 | disposition home or self-care (01) ==
PROVIDERS: PCP Internal Medicine; Visit Provider Student in an Organized Health Care Education/Training Program
PROC: (CPT 27447; principal; 2024-04-19 09:30)
DX: M17.11 Unilateral primary osteoarthritis, right knee (principal); G89.18 Other acute postprocedural pain; M25.561 Pain in right knee; I10 Essential (primary) hypertension; G47.30 Sleep apnea, unspecified
CPT/HCPCS: 20985; 27447; 64447; 97162; 97530; C1776; J0665; J0666; J0690; J1171; J2003; J2250; J2371; J2401; J2405; J2704; J3010

== ENCOUNTER 2024-05-05 11:47 | Outpatient (CLI) | payer MEDICARE, SELFPAY ==
--- NOTE | 2024-05-05 07:45 | DI.RAD_ITS ---
Exam(s) XR KNEE RT 1V XR STANDING ALIGNMENT EXAM: XR STANDING ALIGNMENT and XR knee RT 1 V CLINICAL HISTORY: 1ST POST R TKA. TECHNIQUE: 2D digital imaging was performed. Five images were obtained. COMPARISON: CR XR KNEE RT 1V from 02/26/2024 CR XR STANDING ALIGNMENT from 02/26/2024 FINDINGS: BONES: The hips are well maintained. Since the prior examination the patient has undergone a right t otal knee arthroplasty. Orthopedic hardware appears in good position. There enthesophytes seen at t he patella and anterior tibial tuberosity. The orthopedic hardware appears in good position. There again seen findings of a prior left total knee arthroplasty. The ankles are well maintained.There is no significant leg length discrepancy. SOFT TISSUE: Normal. IMPRESSION: Interval placement of a right total knee arthroplasty. DATA REPOSITORY: RADIATION DOSE DELIVERED:
== END 2024-05-05 11:48 | disposition home or self-care (01) ==
LOC: DIORS 11:48
PROVIDERS: PCP Internal Medicine; Visit Provider Student in an Organized Health Care Education/Training Program
DX: Z96.651 Presence of right artificial knee joint (principal); Z47.1 Aftercare following joint replacement surgery
CPT/HCPCS: 99024; 73560; 77073

== ENCOUNTER → 2024-06-03 08:33 | Outpatient (BNVA) | payer MEDICARE, SELFPAY | PROVIDERS: PCP Internal Medicine; Visit Provider Physician Assistant | DX: Z47.1 Aftercare following joint replacement surgery (principal); Z96.651 Presence of right artificial knee joint | CPT/HCPCS: 99024 ==

== ENCOUNTER 2024-10-03 13:20 | Outpatient (CLI) | payer MEDICARE, SELFPAY ==
--- NOTE | 2024-10-03 12:45 | DI.RAD_ITS ---
Exam(s) XR KNEE LT 2V AP,LAT EXAM: XR KNEE LT 2V AP,LAT CLINICAL HISTORY: ANNUAL F/U L TKA. TECHNIQUE: 2D digital imaging was performed. Two images were obtained. AP and lateral views were obtained. COMPARISON: CR XR KNEE LT 2V AP,LAT from 11/09/2023 CR XR KNEE LT 2V AP,LAT from 12/21/2023 CR XR KNEE RT 1V from 02/26/2024 CR XR STANDING ALIGNMENT from 05/05/2024 FINDINGS: BONES: There postoperative changes again seen in the left total knee arthroplasty. There is increased lucency seen posteriorly at the tibial component on the lateral view. The orthopedic hardware otherwise appears unremarkable. No fracture or dislocation. JOINTS: The orthopedic hardware is in good position. There is no joint effusion. Enthesophytes are seen at the anterior patella and the anterior tibial tuberosity. SOFT TISSUE: Vascular calcifications are present. IMPRESSION: There is a left total knee arthroplasty. There is increased lucency about the tibial component of the orthopedic hardware posteriorly on the lateral view. This may represent loosening. Please correlate clinically. DATA REPOSITORY: RADIATION DOSE DELIVERED:
== END 2024-10-03 13:21 | disposition home or self-care (01) ==
LOC: DIORS 13:20
PROVIDERS: PCP Internal Medicine; Visit Provider Physician Assistant
DX: M97.12XA Periprosthetic fracture around internal prosthetic left knee joint, initial encounter (principal); Z47.1 Aftercare following joint replacement surgery; Z96.652 Presence of left artificial knee joint
CPT/HCPCS: 99212; 73560

== ENCOUNTER 2024-11-10 08:19 | Outpatient (CLI) | payer MEDICARE, SELFPAY ==
--- NOTE | 2024-11-10 08:00 | DI.RAD_ITS ---
Exam(s) XR KNEE RT 3V AP,LAT,EFRAÍN EXAM: XR KNEE RT 3V AP,LAT,EFRAÍN CLINICAL HISTORY: RIGHT KNEE PAIN. TECHNIQUE: 2D digital imaging was performed. Four images were obtained. AP, lateral and oblique views were obtained. COMPARISON: CR XR STANDING ALIGNMENT from 02/26/2024 CR XR KNEE RT 1V from 02/26/2024 CR XR KNEE RT 1V from 05/05/2024 CR XR STANDING ALIGNMENT from 05/05/2024 FINDINGS: BONES: There are stable post operative changes of a right total knee arthroplasty present. There are new os of again [place] interposed between the patella and the femur on the lateral view. There are enthesophytes at the anterior patella. JOINTS: The orthopedic hardware is in good position. No evidence of hardware loosening. There does appear to be a small joint effusion. SOFT TISSUE: Normal. IMPRESSION: 1. Stable right total knee arthroplasty. 2. There are new loss of [place] seen on the lateral view between the patella and the femur which may represents fracture fragments. Please correlate clinically. DATA REPOSITORY: RADIATION DOSE DELIVERED:
== END 2024-11-10 08:20 | disposition home or self-care (01) ==
LOC: DIORS 08:19
PROVIDERS: PCP Internal Medicine; Referring Provider Internal Medicine; Visit Provider Student in an Organized Health Care Education/Training Program
DX: Z47.1 Aftercare following joint replacement surgery (principal); Z96.651 Presence of right artificial knee joint; M70.51 Other bursitis of knee, right knee
CPT/HCPCS: 99213; 20610; 73562; J1010